=== PATIENT | female | born 1980 | race Caucasian/White ===

== ENCOUNTER 2016-09-25 09:39 | Emergency (ER) | payer MEDICAID ==
[~2016-09-25] VITALS: Ht 154.9 cm; Wt 78.1 kg
[~2016-09-25 09:39] MED LIST: CA C1TAB60 PO; CIPR500T4 PO; HYDR-3498 PO; IBUP-1542 PO; PREN-39 PO; [UNRECOGNIZED DRUG - CODE] VAG
[2016-09-25 09:49] VITALS: Ht 154.9 cm; Wt 78.1 kg
[2016-09-25] MEDS ORDERED: FAMOTIDINE 20 MG INJ IV STA (11:41)
[2016-09-25] MEDS ORDERED: SOD CHLORIDE 0.9% 1,000 ML IV STA (11:41)
[2016-09-25] MEDS ORDERED: morphine 4 MG/ML VIAL IV STA (11:41)
[2016-09-25] MEDS ORDERED: ONDANSETRON 4 MG INJ IV STA (11:41)
[2016-09-25 12:04] LABS: ADD SCAN DIFF NO
[2016-09-25 12:15] LABS: ADD UMIC NO; URINE BILIRUBIN (Dip) NEGATIVE (NEGATIVE); URINE BLOOD (Dip) NEGATIVE (NEGATIVE); URINE COLOR LT. YELLOW (YELLOW); URINE GLUCOSE (Dip) NEGATIVE (NEGATIVE); URINE KETONES (Dip) NEGATIVE (NEGATIVE); URINE LEUKOCYTE ESTERASE (Dip) NEGATIVE (NEGATIVE); URINE NITRITE (Dip) NEGATIVE (NEGATIVE); URINE TOTAL PROTEIN (Dip) NEGATIVE (NEGATIVE); URINE UROBILINOGEN (Dip) 0.2 E.U./dL (0.1-1.0)
[2016-09-25 12:15] LABS: BASOPHILS % 0.4 % (0.0-2.0); EOSINOPHILS # 0.2 10^3/ul (0.0-0.5); EOSINOPHILS % 2.3 % (0.0-7.0); HEMATOCRIT 38.5 % (37.0-47.0); HEMOGLOBIN 12.4 g/dl (12.0-16.0); LYMPHOCYTES # 2.7 10^3/ul (0.8-2.9); LYMPHOCYTES % 39.8 % (15.0-51.0); MEAN CORPUSCULAR HEMOGLOBIN 28.8 pg (29.0-33.0); MEAN CORPUSCULAR HGB CONC 32.2 g/dl (32.0-37.0); MEAN CORPUSCULAR VOLUME 89.5 fl (82.0-101.0); MEAN PLATELET VOLUME 9.4 fl (7.4-10.4); MONOCYTE # 0.3 10^3/ul (0.3-0.9); MONOCYTES % 4.4 % (0.0-11.0); NEUTROPHIL # 3.6 10^3/ul (1.6-7.5); PLATELET COUNT 323 10^3/UL (140-415); RED CELL DISTRIBUTION WIDTH 13.3 % (11.5-14.5); WHITE BLOOD COUNT 6.9 10^3/ul (4.8-10.8)
[2016-09-25 12:21] LABS: ALBUMIN 4.4 g/dl (3.3-4.9); POTASSIUM 3.5 mmol/L (3.5-5.1)
[2016-09-25 12:23] LABS: BILIRUBIN,INDIRECT 0.1 mg/dl (0-1.1); BILIRUBIN,TOTAL 0.1 mg/dl (0.2-1.3); CREATININE 0.65 mg/dl (0.44-1.00)
[2016-09-25 12:24] LABS: ALBUMIN/GLOBULIN RATIO 1.25; CALCIUM 8.9 mg/dl (8.4-10.2); TOTAL PROTEIN 7.9 g/dl (6.1-8.1)
[2016-09-25] MEDS ORDERED: SOD CHLORIDE 0.9% 100 ML ONE (13:37)
[2016-09-25] MEDS ORDERED: IOHEXOL 300MG/ML 150 ML BTL ONE (13:37)
--- NOTE | 2016-09-25 14:05 | RADRPT ---
PROCEDURE: CT abdomen and pelvis with intravenous contrast. CLINICAL INDICATION: left lower abdominal pain, epigastric pain, vomiting, diarrh TECHNIQUE: Following intravenous contrast, spiral CT of the abdomen pelvis was performed and is re constructed at 2.5 mm contiguous axial intervals from the dome of the diaphragm to the inferior pubi c rami. Computer reformatted coronal and sagittal images are included. CT D I 9 millicurie Dose 480 millicurie per centimeter COMPARISON: Pelvic ultrasound March 31, 2015 FINDINGS: Lung bases are clear of any infiltrate or mass. There is no effusion. The liver is of normal size, contour and attenuation with no mass or intrahepatic ductal dilatation. No gallstones are present. No splenic, adrenal or pancreatic abnormalities present. Kidneys enhance symmetrically. No hydronephrosis, calculus or masses present. Ureters are of kendal l course and caliber with no stone. No bladder mass or stone is present. There is a small volume of fluid within the endometrial canal. Noted is a tubular fluid collection in the left debbie pelvis. This was present on the prior pelvic ultrasound and is compatible with a h ydrosalpinx. There is trace pelvic ascites. No bowel mass or obstruction is seen. There is no pneumoperitoneum. No aneurysm is detected. There is no adenopathy. The osseous structures are intact. IMPRESSION: No evidence of urolithiasis, obstructive uropathy, diverticulitis or appendicitis. Tubular fluid collection extending from left adnexa and the cul-de-sac suspicious for hydrosalpinx. Small volume fluid cul-de-sac. Pelvic ultrasound is suggested for more definitive diagnosis. .Rodney Sarmiento MD, MD Date Time Electronically viewed and signed by .Rodney Sarmiento MD, on 09/25/2016 14:05 .A/
--- NOTE | 2016-09-25 15:19 | RADRPT ---
PROCEDURE: US Pelvis CLINICAL INDICATION: Left lower abdominal pain. TECHNIQUE: Sonographic evaluation of the pelvis was performed utilizing both transabdominal and tr ansvaginal technique. Curved array transabdominal transducer technique as well as a high frequency endovaginal probe was utilized. Images were reviewed on the high-resolution PACS workstation. COMPARISON: Pelvic ultrasound dated 03/31/2015. CT dated 09/25/2016. FINDINGS: The uterus measures 9.63 cm x 5.91 cm x 5.82 cm in dimension. The uterus is anteverted in normal position. The endometrium measures 1.8 cm in thickness. The right ovary measures 2.59 cm x 1.8 cm x 1.73 cm in dimension. The left ovary measures 2.83 cm x 1.93 cm x 2.12 cm in dimension. There is normal flow demonstrated within the ovaries. There is a tubular structure in the left adnexa with associated low level internal echoes measuring 6.2 x 2.2 x 2.8 cm, similar in appearance when compared with the exam from 2014. There is a small amount of fr ee fluid in the right adnexa. IMPRESSION: 1. Tubular structure in the left adnexa with low-level internal echoes, similar in appearance when compared the exam from 03/31/2015. Differential considerations include hematosalpinx, pyosalpinx, an d complicated paraovarian cyst. An endometrioma would be less likely to have this configuration and stability over time. 2. Small amount of free fluid in the right adnexa, which is nonspecific. RPTAT: GG .Robby Machado MD, MD Date Time Electronically viewed and signed by .Robby Machado MD, MD on 09/25/2016 15:18 .P/
--- NOTE | 2016-09-25 15:26 | ERD ---
ER Documentation Chief Complaint Date/Time DATE: 09/25/16 Chief Complaint Abdominal pain, nausea, vomiting, diarrhea HPI The patient is a 36-year-old female who presents to the Emergency Department with complaint of abdominal pain. The patient reports that since yesterday she has developed cramping epigastric abdominal pain, nausea, vomiting and diarrhea. She reports approximately five episodes of nonbilious, nonbloody emesis, and approximately seven episodes of nonbloody, nonmucoid diarrhea. Denies black or bloody stools. Denies recent travel, stream water exposure, immunocompromised state. Denies recent antibiotic use. Denies fevers or chills. The patient rates her current pain as 4/10, and describes it as cramping in nature. She denies any radiation of pain. The patient also reports that she has been experiencing left pelvic pain since this morning. The pain is nonradiating and aching in nature. She denies vaginal bleeding or new vaginal discharge. Denies dysuria, hematuria or flank pain. ROS All systems reviewed and are negative except as per history of present illness. Medications Home Meds Active Scripts Ibuprofen* (Motrin*) 600 Mg Tab, 600 MG PO Q6, #20 TAB Prov:BOLA GARVIN PA-C 09/25/16 Ondansetron (Ondansetron Odt) 4 Mg Tab.rapdis, 4 MG PO Q6H Y for NAUSEA AND/OR VOMITING, #8 TAB Prov:BOLA GARVIN PA-C 09/25/16 Ibuprofen* (Motrin*) 600 Mg Tab, 600 MG PO Q6, #20 TAB Prov:SHELLIE RENTERIA PA-C 08/17/15 Hydrocodone Bit-Acetaminophen* ([place]*) 5-325 Mg Tab, 1 TAB PO Q6 Y for PAIN, # 7 TAB Prov:SHELLIE RENTERIA PA-C 08/17/15 Miconazole Nitrate* (Miconazole-7*) 100 Mg/Supp.vag Supp.vag, 100 MG VAG HS, #7 SUPP.VAG Prov:ABUNDIO MATOS PA-C 08/15/15 Ciprofloxacin Hcl* (Ciprofloxacin Hcl*) 500 Mg Tablet, 500 MG PO BID for 7 Days , TAB Prov:ABUNDIO MATOS PA-C 08/15/15 Hydrocodone Bit-Acetaminophen* ([place]*) 5-325 Mg Tab, 1 TAB PO Q6 Y for PAIN, # 15 TAB Prov:ONI THOMAS 03/31/15 Reported Medications Ca Carbonate-Vitamin D3-Vit K (Calcium + D Soft Chewable Tab) 1 Each Tab.chew, 1 EACH PO 12/09/12 Vits W-Ca,Fe,Fa(<1MG) ( Vitamins) 1 Tab Tablet, 1 TAB PO DAILY 12/09/12 Allergies Allergies: Coded Allergies: No Known Drug Allergies (Verified Allergy, Unknown, 09/25/16) PMhx/Soc History of Surgery: Yes (tubal ligation) Anesthesia Reaction: No Hx Neurological Disorder: No Hx Respiratory Disorders: No Hx Cardiac Disorders: No Hx Psychiatric Problems: No Hx Miscellaneous Medical Probl: Yes (ovarian cysts ) Hx Alcohol Use: No Hx Substance Use: No Hx Tobacco Use: No Smoking Status: Never smoker Physical Exam Vitals Vital Signs Date Time Temp Pulse Resp B/P Pulse Ox O2 Delivery O2 Flow Rate FiO2 09/25/16 15:49 98.2 68 18 116/59 99 Room Air 09/25/16 09:49 98.1 61 18 111/57 99 Physical Exam GENERAL: Well-developed, well-nourished, in no acute distress HEENT: Head is normocephalic, atraumatic. No scleral pallor or icterus. Conjunctiva pink. Moist mucous membranes. NECK: Supple. Full range of motion. RESPIRATORY: Lungs are clear to auscultation bilaterally. Equal breath sounds. Normal expiratory effort. CARDIOVASCULAR: Regular rate and rhythm. S1 and S2 normal. GASTROINTESTINAL: Abdomen is soft and nondistended. Tenderness to palpation over the epigastric region and left lower quadrant of the abdomen. No guarding, no rebound tenderness. Normal bowel sounds. No gross peritonitis. FLANK: No CVA tenderness. EXTREMITIES: No clubbing, cyanosis, or edema. Normal skin perfusion. Moving all extremities. Distal pulses are palpable, 2+ bilaterally. Capillary refill is less than 2 seconds. NEUROLOGIC: The patient is alert, awake, and oriented x 3. INTEGUMENT: Skin is clean, dry and intact. PSYCHIATRIC: Appropriate; Cooperative. Result Diagram: 09/25/16 1100 09/25/16 1100 Results 24 hrs Laboratory Tests Test 09/25/16 11:00 09/25/16 11:50 White Blood Count 6.910^3/ul Red Blood Count 4.3010^6/ul Hemoglobin 12.4g/dl Hematocrit 38.5% Mean Corpuscular Volume 89.5fl Mean Corpuscular Hemoglobin 28.8pg Mean Corpuscular Hemoglobin Concent 32.2g/dl Red Cell Distribution Width 13.3% Platelet Count 42215^3/UL Mean Platelet Volume 9.4fl Neutrophils % 53.0% Lymphocytes % 39.8% Monocytes % 4.4% Eosinophils % 2.3% Basophils % 0.4% Nucleated Red Blood Cells % 0.0/100WBC Neutrophils # 3.610^3/ul Lymphocytes # 2.710^3/ul Monocytes # 0.310^3/ul Eosinophils # 0.210^3/ul Basophils # 0.010^3/ul Nucleated Red Blood Cells # 0.010^3/ul Sodium Level 141mmol/L Potassium Level 3.5mmol/L Chloride Level 103mmol/L Carbon Dioxide Level 25mmol/L Anion Gap 17 Blood Urea Nitrogen 10mg/dl Creatinine 0.65mg/dl Glucose Level 110mg/dl Calcium Level 8.9mg/dl Total Bilirubin 0.1mg/dl Direct Bilirubin 0.00mg/dl Indirect Bilirubin 0.1mg/dl Aspartate Amino Transf (AST/SGOT) 24IU/L Alanine Aminotransferase (ALT/SGPT) 20IU/L Alkaline Phosphatase 53IU/L Total Protein 7.9g/dl Albumin 4.4g/dl Globulin 3.50g/dl Albumin/Globulin Ratio 1.25 Lipase 158U/L Urine Color LT. YELLOW Urine Clarity CLEAR Urine pH 6.0 Urine Specific [place] 1.015 Urine Ketones NEGATIVE Urine Nitrite NEGATIVE Urine Bilirubin NEGATIVE Urine Urobilinogen 0.2 E.U./dL Urine Leukocyte Esterase NEGATIVE Urine Hemoglobin NEGATIVE Urine Glucose NEGATIVE% Urine Total Protein NEGATIVE Current Medications Medications (Trade) Dose Ordered Sig/Denny Route PRN Reason Start Time Stop Time Status Last Admin Dose Admin Sodium Chloride (NS) 1,000 ml @ 1,000 mls/hr Q1H STAT IV 09/25/16 11:41 09/25/16 12:40 DC 09/25/16 11:51 Morphine Sulfate (morphine) 4 mg ONCE STAT IV 09/25/16 11:41 09/25/16 11:43 DC 09/25/16 11:51 Ondansetron HCl (Zofran Inj) 4 mg ONCE STAT IV 09/25/16 11:41 09/25/16 11:43 DC 09/25/16 11:50 Famotidine (Pepcid Iv) 20 mg ONCE STAT IV 09/25/16 11:41 09/25/16 11:43 DC 09/25/16 11:50 IV Flush 10 ml 10 ml STK-MED ONCE .ROUTE 09/25/16 13:37 09/25/16 13:38 DC 09/25/16 13:53 Sodium Chloride (NS) 100 ml @ ud STK-MED ONCE .ROUTE 09/25/16 13:37 09/25/16 13:38 DC 09/25/16 13:53 Iohexol (Omnipaque 300mg/ ml) 150 ml STK-MED ONCE .ROUTE 09/25/16 13:37 09/25/16 13:38 DC 09/25/16 13:53 Procedures/MDM The patient's case was reviewed and discussed with Dr. Sloan, who agrees with the plan of care including labs, treatment and advanced imaging as appropriate. DIAGNOSTIC TESTS AND INTERPRETATION: PROCEDURE: CT abdomen and pelvis with intravenous contrast. CLINICAL INDICATION: left lower abdominal pain, epigastric pain, vomiting, diarrh TECHNIQUE: Following intravenous contrast, spiral CT of the abdomen pelvis was performed and is reconstructed at 2.5 mm contiguous axial intervals from the dome of the diaphragm to the inferior pubic rami. Computer reformatted coronal and sagittal images are included. CT D I 9 millicurie Dose 480 millicurie per centimeter COMPARISON: Pelvic ultrasound March 31, 2015 FINDINGS: Lung bases are clear of any infiltrate or mass. There is no effusion. The liver is of normal size, contour and attenuation with no mass or intrahepatic ductal dilatation. No gallstones are present. No splenic, adrenal or pancreatic abnormalities present. Kidneys enhance symmetrically. No hydronephrosis, calculus or masses present. Ureters are of normal course and caliber with no stone. No bladder mass or stone is present. There is a small volume of fluid within the endometrial canal. Noted is a tubular fluid collection in the left debbie pelvis. This was present on the prior pelvic ultrasound and is compatible with a hydrosalpinx. There is trace pelvic ascites. No bowel mass or obstruction is seen. There is no pneumoperitoneum. No aneurysm is detected. There is no adenopathy. The osseous structures are intact. IMPRESSION: No evidence of urolithiasis, obstructive uropathy, diverticulitis or appendicitis. Tubular fluid collection extending from left adnexa and the cul-de-sac suspicious for hydrosalpinx. Small volume fluid cul-de-sac. Pelvic ultrasound is suggested for more definitive diagnosis. .Rodney Sarmiento MD, MD Date Time Electronically viewed and signed by .Rodney Sarmiento MD, on 09/25/2016 14: 05 PROCEDURE: US Pelvis CLINICAL INDICATION: Left lower abdominal pain. TECHNIQUE: Sonographic evaluation of the pelvis was performed utilizing both transabdominal and transvaginal technique. Curved array transabdominal transducer technique as well as a high frequency endovaginal probe was utilized. Images were reviewed on the high-resolution PACS workstation. COMPARISON: Pelvic ultrasound dated 03/31/2015. CT dated 09/25/2016. FINDINGS: The uterus measures 9.63 cm x 5.91 cm x 5.82 cm in dimension. The uterus is anteverted in normal position. The endometrium measures 1.8 cm in thickness. The right ovary measures 2.59 cm x 1.8 cm x 1.73 cm in dimension. The left ovary measures 2.83 cm x 1.93 cm x 2.12 cm in dimension. There is normal flow demonstrated within the ovaries. There is a tubular structure in the left adnexa with associated low level internal echoes measuring 6.2 x 2.2 x 2.8 cm, similar in appearance when compared with the exam from 2014. There is a small amount of free fluid in the right adnexa. IMPRESSION: 1. Tubular structure in the left adnexa with low-level internal echoes, similar in appearance when compared the exam from 03/31/2015. Differential considerations include hematosalpinx, pyosalpinx, and complicated paraovarian cyst. An endometrioma would be less likely to have this configuration and stability over time. 2. Small amount of free fluid in the right adnexa, which is nonspecific. .Robby Machado MD, MD Date Time Electronically viewed and signed by .Robby Machado MD, MD on 09/25/2016 15:18 MEDICAL DECISION MAKING: This is a 36-year-old [place] presenting to the Emergency Department with complaint of epigastric abdominal cramping, nausea, vomiting and diarrhea since yesterday. The patient had tenderness to palpation over the epigastrium on examination. Vital signs were normal. The differential diagnosis includes, but is not limited to, ileus, volvulus, incarcerated hernia , GERD, PUD, viral illness, gastroenteritis, infectious diarrhea, food allergy, torsion, bowel obstruction, inflammatory bowel disease, peritonitis, appendicitis, pancreatitis, gastritis, cholecystitis, pancreatitis, perforated viscus, mesenteric ischemia, diverticulitis. I suspect acute gastroenteritis. Doubt dysentery as the patient has no blood in stools. Doubt C. diff, as the patient has no recent antibiotic use. Doubt traveler's diarrhea, patient has had no recent travel. Doubt parasitic infection, patient has had no stream water or immunocompromised status. Doubt cholecystitis, no RUQ tenderness, negative Swan's sign. Doubt pancreatitis - clinical presentation inconsistent. Doubt perforated ulcer, patient has a non -surgical abdomen. Doubt small bowel obstruction, patient is passing flatus, abdomen is non-distended. Doubt appendicitis, patient has no McBurney's point tenderness, no guarding, non-surgical abdomen, no tenderness over the RLQ. Doubt diverticulitis, no evidence on CT. Doubt ischemic bowel, no pain out of proportion to examination. Doubt torsion, symptoms and examination inconsistent. Abdominal examination is benign, with no peritoneal signs present. No evidence of acute/surgical abdomen, or any other emergent medical condition. The patient's mucous membranes are moist, and she is tolerating POs appropriately, with no vomiting or diarrhea. No indication of dehydration. After rest and administration of medications and fluids, the patient reports no new complaints and resolved pain. She has had no episodes of emesis or diarrhea while in the emergency department. The patient also reported onset of left lower quadrant abdominal pain/pelvic pain. CT abdomen and pelvis and ultrasound imaging performed revealed a tubular structure in the left adnexa with low-level internal echoes, similar in appearance when compared the exam from 03/31/2015. These findings were discussed with Dr. Chao ([facility] OPERATOR laborist on-call) who states that the patient does not require antibiotic therapy at this time, but rather needs to follow up with her [facility] OPERATOR regarding these findings. These findings were discussed with the patient, who has known about it in the past, and has been evaluated already for it. The patient will follow up again with her [facility] OPERATOR. Upon my review and interpretation of the patient's presentation, clinical data, and overall ER course, I believe the patient's symptoms are most consistent with epigastric abdominal pain, vomiting, diarrhea, uncertain etiology, but likely viral. Symptoms likely secondary to acute gastroenteritis. Additionally , patient noted to have pelvic pain, likely secondary to underlying hydrosalpinx. At this time the patient is in stable condition and therefore can be discharged home with a prescription for Ibuprofen and Zofran and strict return precautions for signs of deteriorating or worsening condition. The patient is advised to follow up with their primary medical provider and [facility] OPERATOR within 1-2 days for reevaluation and further management, or return to the ER sooner for any worsening symptoms, including inability to tolerate POs, abdominal pain, altered mental status, persistent vomiting, persistent fevers greater than 100.4 F, or any other concerning symptoms. I shared my medical decision making and plan with the patient at length and in great detail, and she verbally understands and agrees with the plan for further observation and care as an outpatient. At the time of discharge, all questions were answered. Departure Diagnosis: Primary Impression: Epigastric pain Additional Impressions: Pelvic pain in female Vomiting and diarrhea Condition: Stable Patient Instructions: Gastroenteritis, Viral (6Y-Adult), Pelvic Pain, Unknown Cause Additional Instructions: Llame al doctor MAANA y neno tammie NHUNG PARA DENTRO DE 1-2 POSADA.Dgale a la secretaria que nosotros le instruimos hacer esta nhung.Avise o llame si yost condicin se empeora antes de la nhung. Regresa aqui si peor o no mejor. BOLA GARVIN PA-C Sep 25, 2016 15:26
[2016-09-25] MEDS ORDERED: IBUP-1542 PO (15:27)
[2016-09-25] MEDS ORDERED: ONDA4TAB14 PO (15:27)
[2016-09-25 15:49] VITALS: BP 116/59; PULSE 68; RESP 18; TEMP 98.2
== END 2016-09-25 15:51 | disposition home or self-care (01) ==
LOC: FTE 09:39
DX: R10.13 Epigastric pain (principal); R10.2 Pelvic and perineal pain; R11.10 Vomiting, unspecified; R19.7 Diarrhea, unspecified
CPT/HCPCS: 36415; 74177; 76830; 76856; 80053; 81003; 83690; 85025; 87086; 96361; 96374; 96375; J2270; J2405; J7030; Q9967; Z7502; Z7610